=== PATIENT | female | born 1955 | race Caucasian/White ===

== ENCOUNTER → 2016-07-28 | Outpatient (CLI) | payer OTHER | LOC: RAD 01:09 | DX: Z12.31 Encounter for screening mammogram for malignant neoplasm of breast (principal) ==

== ENCOUNTER → 2020-06-04 | Outpatient (CLI) | payer BC, OTHER ==
[~2020-06-04] MED LIST: AMBIEN 5 MG TABL5 M1 PO; ASA81BEC PO; METOPROLOL SUCC50 MG PO; MULTI FOR HER1 EAC1 PO; NEURONTIN 300M300 M2 PO; TELMISARTAN-HC1 EAC1 PO; TURMERIC PO; VITAMIN D350 MC3 PO
== END ==
LOC: LAB
PROVIDERS: ATTEND Orthopaedic Surgery
DX: Z01.812 Encounter for preprocedural laboratory examination (principal); Z20.822 Contact with and (suspected) exposure to COVID-19

== ENCOUNTER → 2020-06-05 | Outpatient (CLI) | payer BC, OTHER | LOC: BC 09:23 | PROVIDERS: ATTEND Obstetrics & Gynecology | DX: Z12.31 Encounter for screening mammogram for malignant neoplasm of breast (principal) ==

== ENCOUNTER 2020-06-09 08:18 | Day surgery (SDC) | payer BC, OTHER ==
[~2020-06-09] VITALS: Ht 170.2 cm; Wt 100.2 kg
--- NOTE | ~2020-06-09 | O ---
[facility] [place] [address] OPERATIVE REPORT Name: DONNA DUNLAP Room #: 150-2 [facility]..#: [id number] Admission: 06/09/20 Attend Phys: Bird Carrasco MD Discharge: Date of : 57 Report #: [id number] THIS REPORT FOR: cc: Citlaly Chong MD, Melissa J. MD Clymer, David J. 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 PROCEDURES: 1. Left knee arthroscopy with partial lateral meniscectomy. 2. Debridement of medial femoral condyle chondromalacia. 3. Debridement of patellofemoral chondromalacia. SURGEON: Bird Carrasco MD INDICATIONS: This active, but deconditioned 64-year-old female complains of chronic progressive left knee pain. She had a history of a twisting injury, which occurred several months ago. Her symptoms have not improved despite appropriate time, rest, and anti-inflammatory medications. MRI study confirms evidence of a lateral meniscus tear as well as some degenerative chondromalacia. We have discussed that she does have evidence of moderate early degenerative arthritis, but also evidence of a new lateral meniscus tear. We discussed treatment options. We have reviewed that eventually the degenerative chondromalacia may worsen and total joint replacement may be required. At this point, the findings are not that severe and yet her symptoms are significant. She has elected to go ahead with arthroscopic debridement, particularly involving the lateral meniscus hoping for symptomatic improvement. I have explained that we probably will do some debridement of the other areas of degenerative chondromalacia if necessary as well. DESCRIPTION OF PROCEDURE: The patient was taken to the operating room where she was placed under general anesthesia. Prophylactic intravenous antibiotics were administered. The left knee and leg were meticulously prepped and draped and a thigh tourniquet inflated to 300 mmHg. A lateral suprapatellar inflow cannula was placed. The knee was inflated with normal saline. The arthroscope and shaver were introduced through parapatellar tendon approaches. The various compartments were sequentially visualized and documented with arthroscopic photography. [address] [address] OPERATIVE REPORT Name: DONNA DUNLAP Room #: [address] [place] [address].Glendy#: [id number] Admission: 06/09/20 Attend Phys: Bird Carrasco MD Discharge: Date of : 57 Report #: [id number] The lateral compartment reveals moderate degenerative tearing in the mid and posterior aspect of the lateral meniscus. There was a small flap tear inverted into the meniscal tibial recess, which was flipped back up into the joint. This was resected back to a smooth even margin. There was more severe damage in the posterior aspect and in the posterior horn, which required further debridement. The mid lateral and anterior aspect was less severely involved. The anterior intermeniscal ligament was still intact and the anterior aspect of the meniscus appeared to be stable and functional. No further debridement of the lateral meniscus was necessary. There was some [id number] chondromalacia on the lateral femoral condyle and the lateral tibial plateau, which were gently debrided as well. No further debridement lateral compartment was necessary. The intercondylar notch reveals the cruciate ligaments be present and functioning normally. No debridement there was necessary. The medial compartment reveals good medial meniscus, which appears to be stable and functional. There is minimal chondromalacia damage on the medial tibial plateau, but moderate cartilage damage on the medial femoral condyle. That area did demonstrate some unstable delaminating cartilage, which was debrided back to a more smooth even margin. At the conclusion, there is still adequate cartilage coverage over the entire femoral condyle, but there is grade 2 to grade 3 damage in several areas. There was also some loose cartilage debris in the posterior medial corner, which was evacuated. The patella and trochlear region revealed moderately severe degenerative chondromalacia, mostly on the patellar side. This was grade 3 to mild grade 4 damage in some areas. I did not find any exposed subchondral bone. The areas of loose, irregular and delaminating cartilage were gently debrided to a more smooth even margin. The trochlear region on the distal femur was in much better shape with only minor fissuring and grooving and only very limited debridement there was necessary. The entire knee was then copiously irrigated. All excess fluid was evacuated from the knee. The knee was then injected with 80 mg of Depo-Medrol and 30 mL of 0.5% Marcaine with epinephrine. The puncture sites were closed with interrupted nylon suture. A sterile dressing was applied. The patient was awakened and returned to recovery room in good condition. By: [id number] Bird Carrasco MD /nt
[2020-06-09 09:04] LABS: CALCIUM 9.6 mg/dL (8.5-10.1); CREATININE 0.9 mg/dL (0.6-1.0); POTASSIUM 3.7 mmol/L (3.5-5.1)
--- NOTE | 2020-06-09 10:25 | EKG ---
[address] [address] ELECTROCARDIOGRAM REPORT Name: DONNA DUNLAP Room #: 150-2 [facility].#: [id number] Admission: 06/09/20 Attend Phys: Bird Carrasco MD Discharge: Date of : 57 Report #: [id number] [facility] Test Date: 2020-06-09 Test Time: 08:53:17 Pat Name: DONNA DUNLAP Department: Room: 150 2 Gender: F Patient Biller: PANCHO : 1955 Requested By: Bird Carrasco Order Number: [id number] : Richmond Elkins Measurements Intervals [place] Rate: 70 P: 54 ME: 179 QRS: 7 QRSD: 80 T: 19 QT: 378 QTc: 408 Interpretive Statements Sinus rhythm Low voltage, precordial leads Baseline wander in lead(s) V4 Compared to ECG 10/29/2002 11:56:34 Low QRS voltage now present Poor R-wave progression no longer present Electronically Signed On 06-09-2020 10:24:50 [facility] by Richmond Elkins [email or web address] <ELECTRONICALLY SIGNED> By: Richmond Elkins MD, FACC 06/09/20 [phone] Richmond Elkins MD, FAC /EPI
[2020-06-09 10:27] VITALS: BP 128/72
[2020-06-09 12:05] VITALS: BP 128/72
== END 2020-06-09 12:35 | disposition home or self-care (01) ==
LOC: OR → TBA 08:18 → OR 08:18
PROVIDERS: ATTEND Orthopaedic Surgery
DX: S83.272D Complex tear of lateral meniscus, current injury, left knee, subsequent encounter (principal); M94.262 Chondromalacia, left knee; M25.562 Pain in left knee; G89.29 Other chronic pain; I10 Essential (primary) hypertension; Z98.890 Other specified postprocedural states; Z79.899 Other long term (current) drug therapy; Z87.891 Personal history of nicotine dependence; Z96.1 Presence of intraocular lens; Z90.710 Acquired absence of both cervix and uterus; X58.XXXD Exposure to other specified factors, subsequent encounter
CPT/HCPCS: 50010; 50101; 50405; 56526; 57103; 57180; 57255; 62110; 62900; 70005